=== PATIENT | female | born 1975 | race Caucasian/White ===

== ENCOUNTER 2019-05-08 05:36 | Emergency (ER) | payer OTHER ==
[~2019-05-08] VITALS: Ht 165.1 cm; Wt 72.6 kg
[~2019-05-08 05:36] MED LIST: ALBU90OI INH; CLON1 PO; Hydromet Syrup473 ML PO; Prednisone20 MG PO; SPACE CHAMBER1 EACH MC; ZOLP10 PO
[2019-05-08] MEDS ORDERED: Naprosyn500 MG PO (07:04)
== END 2019-05-08 07:15 | disposition home or self-care (01) ==
LOC: ER 05:36
DX: S60.222A Contusion of left hand, initial encounter (principal); S40.012A Contusion of left shoulder, initial encounter; Z88.0 Allergy status to penicillin; Y04.2XXA Assault by strike against or bumped into by another person, initial encounter
CPT/HCPCS: 73030; 73130; 99284-25

== ENCOUNTER 2019-06-07 17:35 | Emergency (ER) | payer OTHER ==
[~2019-06-07 17:35] MED LIST changes: +Naprosyn500 MG PO
== END 2019-06-07 18:51 | disposition left against medical advice (07) ==
LOC: ER 17:35
DX: Z53.21 Procedure and treatment not carried out due to patient leaving prior to being seen by health care provider (principal)

== ENCOUNTER → 2020-01-28 | Outpatient (CLI) | payer OTHER | END | disposition home or self-care (01) | LOC: LAB 15:15 → LAB SHORT 15:15 | DX: J02.9 Acute pharyngitis, unspecified (principal) | CPT/HCPCS: 87081 ==

== ENCOUNTER 2023-05-18 17:36 | Emergency (ER) | payer OTHER ==
[~2023-05-18] VITALS: Ht 165.1 cm; Wt 74.8 kg
[2023-05-18 17:43] VITALS: BP 103/65
[2023-05-18] MEDS ORDERED: MONDOXYNE NL100 MG PO (17:50)
== END 2023-05-18 17:53 | disposition home or self-care (01) ==
LOC: ER 17:36
DX: S61.452A Open bite of left hand, initial encounter (principal); W54.0XXA Bitten by dog, initial encounter; Z88.0 Allergy status to penicillin
CPT/HCPCS: 99283